=== PATIENT | male | born 1950 | race Hispanic/Latino ===

== ENCOUNTER 2016-12-12 08:00 | Day surgery (SDC) | payer BC ==
[2016-12-12 09:10] VITALS: BMI 20.2
[2016-12-12] MEDS ORDERED: Midazolam 2 MG/2 ML VIAL ONE (09:40)
[2016-12-12] MEDS ORDERED: Propofol 10 mg/ml Inj (20 ML) ONE (09:40)
[2016-12-12] MEDS ORDERED: Lactated Ringer's 1,000 ML IV SCH (10:15)
[2016-12-12 10:23] VITALS: TEMP 98
[2016-12-12 10:41] VITALS: O2SAT 100
[2016-12-12 10:58] VITALS: BP 103/70; PULSE 64; RESP 12
== END 2016-12-12 11:15 | disposition home or self-care (01) ==
LOC: C.ENDO 08:00
PROVIDERS: ATTEND Internal Medicine Gastroenterology
DX: Z12.11 Encounter for screening for malignant neoplasm of colon (principal); K57.30 Diverticulosis of large intestine without perforation or abscess without bleeding; K64.1 Second degree hemorrhoids; K21.9 Gastro-esophageal reflux disease without esophagitis; J44.9 Chronic obstructive pulmonary disease, unspecified; K21.0 Gastro-esophageal reflux disease with esophagitis; K29.50 Unspecified chronic gastritis without bleeding
CPT/HCPCS: 43239; 45378; 88305; 88312; 88342; J2250; J2704; J7120